=== PATIENT | male | born 1960 | race Caucasian/White ===

== ENCOUNTER 2016-09-07 19:02 | Emergency (ER) | payer MEDICARE, OTHER ==
[~2016-09-07] VITALS: Ht 177.8 cm; Wt 68.0 kg
[2016-09-07 19:35] VITALS: BP 120/90
--- NOTE | 2016-09-07 19:57 | NUR ---
TO ER OF3
--- NOTE | 2016-09-07 19:59 | NUR ---
55Y/M PT. BIB FAMILY TO ED FOR STAPLE REMOVAL. LACERATION TO LT. FOREHEAD, STAPLE CLEAN/DRY/INTACT. PT. AAO X1, AMBULATE WITH ASSIST. SKIN WARM AND DRY. VSS, NO S/SX OF DISTREAA AT THIS TIME. ER MADE AWARE OF PT. STATUS.
--- NOTE | 2016-09-07 20:01 | NUR ---
STAPLE REMOVED, PT. TOLERATED WELL.
[2016-09-07 20:19] VITALS: BP 121/87
== END 2016-09-07 20:20 | disposition home or self-care (01) ==
LOC: MED 19:02
CPT/HCPCS: 99283